=== PATIENT | male | born 1995 | race Asian ===

== ENCOUNTER 2024-09-08 19:34 | Emergency (ER) | payer BC ==
[~2024-09-08] VITALS: Ht 182.9 cm; Wt 81.6 kg
[2024-09-08 19:43] VITALS: BP 116/80; PULSE 75; RESP 18; TEMP 98.3; O2SAT 98
--- NOTE | 2024-09-08 21:22 | Physician Documentation ---
History of Present Illness ~ Chief Complaint: Bite-animal Stated Complaint: ANIMAL BITE Time Seen by MD: 20:32 Primary Medical Doctor: In [facility] Patient is seen today with complaints of having gotten bit by his friend's dog on the right posterior calf proximally that occurred just prior to arrival. They state the animal is fully vaccinated and vaccinated against rabies specifically. Patient has no other concern or complaint at this time. Tetanus within 5 years?: No Medication Reconciliation Allergies: Coded Allergies: No Known Allergies (Unverified , 09/08/24) Review of Systems Constitutional: Denies: chills, fever, weakness Eyes: Denies: pain, blurred vision ENT: Denies: ear pain, nose pain, throat pain, mouth pain Respiratory: Denies: cough, shortness of breath Cardiovascular: Denies: chest pain, palpitations Gastrointestinal: Denies: abdominal pain, nausea, vomiting Genitourinary: Denies: burning, dysuria Male Genitalia: Denies: penile discharge, testicular pain Neurological: Denies: headache, dizziness Musculoskeletal: Denies: pain, swelling Integumentary: Denies: rash, lesions Allergic/Immunologic: Denies: hives, itching Hematologic/Lymphatic: Denies: no symptoms reported Psychiatric: Denies: depression, anxiety Physical Exam Vital Signs: Temperature: 98.3, Source: Temporal, Heart Rate: 75, Respiratory Rate: 18, BP: 116/80, Pulse Oximetry: 98, Weight: 81.600 Oxygen Flow Rate: 0 Physical Exam General: Awake and Alert, no acute distress. HEENT: Conjunctiva pink, Sclera clear, Mucus Membranes moist. Neck: Supple without masses and tenderness. Resp: Unlabored. Lungs clear to auscultation bilaterally. Heart: Regular Rate and rhythm, normal S1 and S2 without murmur, rub or gallop. Extremities: No cyanosis,clubbing or edema. Skin: Patient on exam does have bite myrna consistent with small dog bite to the posterior right calf proximally. I do Not appreciate any sign of infection or erythema or induration or purulent drainage. Progress Results/Orders Results/Orders Completed Orders - LOYDA MARTIN PAC Amox Tr/Potassium Clavulanate (Augmentin (09/08/24 21:03) Tetanus/Pertuss/Diph Acell/Pf (Boostrix (09/08/24 21:10) Vital Signs 09/08/24 19:43 Temp 98.3 Pulse 75 Resp 18 B/P (MAP) 116/80 Pulse Ox 98 O2 Flow Rate 0 Medical Decision Making Findings Patient is seen today with complaints of having gotten bit by his friend's dog on the right posterior calf proximally that occurred just prior to arrival. They state the animal is fully vaccinated and vaccinated against rabies specifically. Patient has no other concern or complaint at this time. Patient was given dose of Augmentin 875/125 mg by mouth in the ED tonight. Prescription of Augmentin 875/125 mg one tab twice a day by mouth sent to patient pharmacy. Patient will follow up with primary care in 2-5 days if no better as needed sooner. Return to ED with any worsening, concerning or changing symptoms. Departure Disposition: 01 HOME / SELF CARE / HOMELESS Impression: Primary Impression: Dog bite Qualified Codes: W54.0XXA - Bitten by dog, initial encounter Condition: Stable Discharge Instructions: Animal Bite, Adult Additional Instructions: Patient was given dose of Augmentin 875/125 mg by mouth in the ED tonight. Prescription of Augmentin 875/125 mg one tab twice a day by mouth sent to patient pharmacy. Patient will follow up with primary care in 2-5 days if no better as needed sooner. Return to ED with any worsening, concerning or changing symptoms. Referrals: NO PRIMARY CARE PROVIDER (PCP) Signature Scribe Signature: No scribe Attestation: No scribe LOYDA MARTIN PAC Sep 08, 2024 21:22
[2024-09-08] MEDS: amox tr/potassium clavulanate 875/125mg TAB PO STA (21:33)
[2024-09-08] MEDS: TETanus/Pertussis (Acell)/Diphther VAC/PF (Tdap-Adult) 0.5ml syringe IMVAC ONE (21:34)
[2024-09-08] MEDS ORDERED: AMOX-580 PO (21:35)
== END 2024-09-08 21:43 | disposition home or self-care (01) ==
LOC: ER 19:36
DX: S81.851A Open bite, right lower leg, initial encounter (principal); W54.0XXA Bitten by dog, initial encounter; Y93.89 Activity, other specified; Y92.89 Other specified places as the place of occurrence of the external cause; Y99.8 Other external cause status
CPT/HCPCS: 90471; 90715; 99283; J7030; A6449